=== PATIENT | male | born 1960 | race Caucasian/White ===

== ENCOUNTER 2024-08-04 19:22 | Emergency (ER) | payer MEDICAID, SELFPAY ==
--- NOTE | 2024-08-04 19:29 | MHC.EDTECH ---
Patient BIBA,changed into hospital attire,vitals taken and placed on the cardiac surgeon,call [place] in reach
[2024-08-04 19:30] VITALS: BP 138/83; BP 158/88; PULSE 75; PULSE 90; RESP 14; TEMP 36.9; O2SAT 98; O2SAT 99; BMI 27.1
--- NOTE | 2024-08-04 20:54 | ED_ITS ---
HPI - General Adult General Chief complaint: General Medical Stated complaint: choking on steak, SOB Time Seen by Provider: 08/04/24 20:32 Source: patient Mode of arrival: ambulatory Limitations: no limitations History of Present Illness ED Provider: Tyler Ibrahim PA-C HPI narrative: 64 yold with no pmh presents to the ED for steak stuck in throat. Patient states he was eating rice and steak and all of a sudden felt like stieak was stuck in his throat/esophagus. Patient came to the ED due to discomfort. Patient still feels steak in his esophagus/throat and is vomiting. Related Data Allergies Allergy/AdvReac Type Severity Reaction Status Date / Time No Known Allergies Allergy Verified 08/04/24 19:33 Review of Systems Review of Systems: Steak stuck in throat Yes all other systems are reviewed and are negative FOR[facility]LY [facility] Social History Social History Alcohol intake: never Smoked in Last 30 Days: No Use of substances other than those prescribed or required for medical reasons: No Advance Directives: No Advance Directives Information Provided: No Do you have a plan to hurt others: No Plan Physical Exam ED Vital Signs: Vital Signs - 24 hr 08/04/24 19:30 08/04/24 21:59 08/04/24 23:29 Temperature 98.4 F 98.0 F 98.0 F Pulse Rate 75 73 73 Respiratory Rate 14 18 18 Blood Pressure 138/83 108/70 108/70 Pulse Oximetry 99 97 97 Oxygen Delivery Method Room Air Room Air Room Air BMI result Body Mass Index 27.1 Const General: cooperative, healthy appearing, comfortable, no acute distress, well developed, alert, awake and Physically active Orientation/consciousness: patient oriented x3 HENMT Head: Yes normal to inspection, Yes No palpable skull fracture present, Yes normocephalic and Yes atraumatic Throat: Yes posterior oropharynx normal, Yes tonsils normal and Yes uvula midline Eyes General: appearance normal, both eyes and all related structures Neck Neck: Yes normal visual inspection, Yes full ROM, Yes no lymphadenopathy, Yes no meningeal signs, Yes trachea midline, Yes supple, No anterior neck swelling and No tender Chest Chest palpation & inspection: normal inspection of the chest and normal palpation of entire chest wall Resp Effort & Inspection: normal respiratory effort and able to speak in complete sentences Auscultation: clear to auscultation bilaterally Cardio Jugular venous distension: no JVD Heart sounds: S1 normal heart sound present and S2 normal heart sound present GI Inspection: Yes normal to inspection Palpation (GI): Soft to palpation, not firm, nontender, no guarding and not rigid General: Yes no CVA tenderness Back/Spine/Pelvis Back: no CVA tenderness and No back tenderness Skin General skin exam: no rashes or lesions noted, elasticity normal and turgor normal Neuro General: patient oriented x3, gait normal, tone normal, moves all extremities, Normal light touch and pain sensation, no meningeal signs, no focal motor deficits, CN's II-XI intact bilaterally and normal sensation to monofilament Extrem General: Yes normal to inspection, Yes full ROM and Yes capillary refill normal Psych Appearance: grossly normal, well kempt and not disheveled Medications Administered Discontinued Medications Generic Name Dose Route Start Last Admin Trade Name Cbq PRN Reason Stop Dose Admin Glucagon 1 mg 08/04/24 20:43 08/04/24 20:57 Glucagon Hcl 1 Mg Vial IVPUSH 08/04/24 20:44 1 mg ONCE ONE Administration Ondansetron HCl 4 mg 08/04/24 20:43 08/04/24 20:57 Ondansetron Hcl 4 Mg/2 Ml Vial IVPUSH 08/04/24 20:44 4 mg ONCE ONE Administration Medical Decision Making Medical Decision Making [facility] Narrative: 64-year-old male presents to ED for steak/meat stuck in throat after eating. Patient initially vomiting and states every time he swallowed he had to vomit. Patient is speaking in clear sentences. Vital signs stable. Patient initially could not tolerate water. Patient was giving glucagon and Zofran. Patient re- evaluated 1 hour later and states he feels better. Patient states he feels stake move down to belly. Patient drank a whole can of trina torsten. Patient has 8 bags of crackers. Patient feels better would like to be discharged. Due to symptoms resolving after being given glucagon very unlikely still having food bolus. food bolus resolved. Patient denies any chest pain or shortness of breath. Not suspecting any cardiac etiology, PE, myocardial infarction, CHF, cholecystitis, pancreatitis, epiglottitis, GERD, or abdominal perforation/etiology Differential Diagnosis Differential Diagnoses: The differential diagnosis associated with the presentation includes (Food bolus, dyspepsia, GERD) Admission/Observation Consideration of admission/observation: Escalation of care including admission/observation considered Independent Historian Clinical information obtained from an independent historian. History obtained from or confirmed by: Spouse () and Other (Patient) External Record Review External record reviewed: Other (Prior visits) Discharge Plan Discharge Clinical Impression: Food impaction of esophagus Patient Disposition: Home, Self-Care Instructions: Food Impaction (ED) Additional Instructions: Your symptoms resolved with medical intervention. You were able to drink fluids and eat food in ED visit. Likely food bolus/impaction in esophagus resolved. Return to the ED immediately for any drooling, change in voice, chest pain, shortness of breath, weakness, dizziness, vomiting, abdominal pain, chest pain, or any other concerning symptoms. Recommend follow-up with primary care provider Stand Alone Forms: Work/School Release Interventions: ED Discharge Assessment Last Done: 08/04/24 23:29 Discharge Date/Time: 08/04/24 23:05 Print Language: Tajik
[2024-08-04] MEDS: ondansetron HCL 4 MG/2 ML VIAL IVPUSH (20:57)
[2024-08-04] MEDS: glucagon HCL 1 MG VIAL IVPUSH (20:57)
--- NOTE | 2024-08-04 21:00 | PC.NURSE ---
#20 IV placed in L-AC, medications given as ordered.
[2024-08-04 21:59] VITALS: BP 108/70; PULSE 73; RESP 18; TEMP 36.7; O2SAT 97
[2024-08-04 23:29] VITALS: BP 108/70; PULSE 73; RESP 18; TEMP 36.7; O2SAT 97
== END 2024-08-04 23:05 | disposition home or self-care (01) ==
PROVIDERS: Emergency Provider Internal Medicine
DX: R09.89 Other specified symptoms and signs involving the circulatory and respiratory systems (principal); R06.02 Shortness of breath; R11.10 Vomiting, unspecified
CPT/HCPCS: 96374; 96375; 99284; J1610; J2405